=== PATIENT | male | born 1940 | race Caucasian/White ===

== ENCOUNTER 2017-05-07 18:38 | Emergency (ER) | payer OTHER ==
[~2017-05-07] VITALS: Ht 177.8 cm; Wt 77.4 kg
[~2017-05-07 18:38] MED LIST: PRAVASTATIN SOD10 MG PO; PRAVASTATIN SOD40 MG PO; PROZAC10 MG PO; PROZAC20 MG PO; RANITIDINE HCL150 M1 PO; ST. JOSEPH ASPI81 MG PO; TYLENOL ARTHRI650 MG PO
[2017-05-07 20:50] VITALS: BP 176/79
== END 2017-05-07 20:51 ==
LOC: EME 18:38
DX: F32.9 Major depressive disorder, single episode, unspecified (principal); Z63.0 Problems in relationship with spouse or partner; J45.909 Unspecified asthma, uncomplicated; E78.5 Hyperlipidemia, unspecified; K21.9 Gastro-esophageal reflux disease without esophagitis
CPT/HCPCS: 80048; 85025; 90837; 99281; 99283; G0480

== ENCOUNTER 2017-10-21 12:42 | Emergency (ER) | payer OTHER ==
[~2017-10-21] VITALS: Ht 177.8 cm; Wt 89.3 kg
[2017-10-21 13:59] LABS: HEMATOCRIT 41.4 % (38.0-50.0); MCH 31.2 PG (29.0-34.0); MCHC 33.6 G/DL (30.0-36.0); MCV 92.8 FL (86-99); MEAN PLAT.VOLUME 8.6 uM^3 (9.0-12.4); PLATELET COUNT 297 K/uL (156-360); RBC DIS.WIDTH-CV 12.2 % (11.8-14.6); RBC DIS.WIDTH-SD 41.7 % (39-53); RED BLOOD COUNT 4.46 M/uL (4.00-5.50)
[2017-10-21 14:11] LABS: CHLORIDE 104 mEq/L (99-109); SODIUM 138 mEq/L (136-147)
[2017-10-21 14:14] LABS: GLUCOSE 101 mg/dL (70-99)
[2017-10-21 14:15] LABS: ANION GAP 9 MEQ/L (2-14)
[2017-10-21 14:16] LABS: TOTAL BILIRUBIN 0.5 mg/dL (0.0-1.0)
[2017-10-21 14:17] LABS: ALKALINE PHOSPHATASE 85 IU/L (3-129); SERUM ETHYL ALCOHOL < 10 mg/dL
[2017-10-21 14:18] LABS: GFR ESTIMATE (CALCULATED) > 59 mL/min/
[2017-10-21 14:19] LABS: UREA NITROGEN (BUN) 15 mg/dL (9-23)
[2017-10-21 14:37] LABS: ADD MIUA? YES; BILIRUBIN NEGATIVE; BLOOD NEGATIVE; COLOR AMBER ((YELLOW)); GLUCOSE (STRIP) NEGATIVE; KETONES 5; LEUKOCYTES NEGATIVE; NITRITE NEGATIVE; PROTEIN (STRIP) 100; SPECIFIC GRAVITY 1.034 (1.000-1.030)
[2017-10-21 14:50] LABS: BACTERIA RARE /HPF; EPITHELIAL CELLS RARE /HPF; HYALINE CASTS 0-5 /LPF; MUCUS 3+ /LPF; RED BLOOD CELLS 0-5 /HPF (0-5); WHITE BLOOD CELLS 0-5 /HPF (0-5)
[2017-10-21 14:51] LABS: ADD MEDTOX COMMENT Y; AMPHETAMINE NEGATIVE (500 ng/mL); BARBITURATES NEGATIVE (200 ng/mL); BENZODIAZEPINES PRESUMPTIVE POSITIVE (150 ng/mL); COCAINE NEGATIVE (150 ng/mL); INTERNAL CONTROLS VALID? YES; METHADONE NEGATIVE (200 ng/mL); METHAMPHETAMINE NEGATIVE (500 ng/mL); OPIATES (MORPHINE) NEGATIVE (100 ng/mL); OXYCODONE NEGATIVE (100 ng/mL); PHENCYCLIDINE NEGATIVE (25 ng/mL); PROPOXYPHENE NEGATIVE (300 ng/mL); THC CANNABINOIDS NEGATIVE (50 ng/mL); TRICYCLIC ANTIDEPRESSANTS NEGATIVE (300 ng/mL)
[2017-10-21] MEDS ORDERED: TRAZODONE HCL50 MG PO (14:58)
[2017-10-21 15:10] VITALS: BP 116/77
[2017-10-21 15:29] LABS: BENZODIAZEPINES QUANT VALUE 0 NG/ML; BENZODIAZEPINES, URINE SCREEN Negative (200 ng/mL)
== END 2017-10-21 15:12 | disposition home or self-care (01) ==
LOC: EME 12:42
PROVIDERS: Emergency Medicine
DX: G47.00 Insomnia, unspecified (principal); F43.25 Adjustment disorder with mixed disturbance of emotions and conduct; F32.9 Major depressive disorder, single episode, unspecified; J45.909 Unspecified asthma, uncomplicated; E78.5 Hyperlipidemia, unspecified; K21.9 Gastro-esophageal reflux disease without esophagitis
CPT/HCPCS: 80053; 81003; 84999; 85027; 90839; 99281; 99284; G0480

== ENCOUNTER 2018-03-20 11:41 | Inpatient (IN) | payer OTHER ==
[~2018-03-20] VITALS: Ht 177.8 cm; Wt 88.0 kg
[~2018-03-20 11:41] MED LIST changes: +TRAZODONE HCL50 MG PO; -TYLENOL ARTHRI650 MG PO; +TYLENOL EXTRA500 MG PO
[2018-05-11] MEDS ORDERED: ULTRAM50 MG PO (11:13)
[2018-05-11] MEDS ORDERED: KLONOPIN0.5 M1 PO (11:14)
[2018-05-11] MEDS ORDERED: WELLBUTRIN XL150 MG PO (11:15)
[2018-05-16 10:00] VITALS: BP 155/72
[2018-05-16 14:09] LABS: HEMATOCRIT 34.1 % (38.0-50.0); HEMOGLOBIN 11.1 G/DL (12.5-16.6); MCH 31.2 PG (29.0-34.0); MCHC 32.6 G/DL (30.0-36.0); MCV 95.8 FL (86-99); PLATELET COUNT 255 K/uL (156-360); RBC DIS.WIDTH-CV 12.1 % (11.8-14.6); RBC DIS.WIDTH-SD 42.5 % (39-53); RED BLOOD COUNT 3.56 M/uL (4.00-5.50); WHITE BLOOD COUNT 6.9 K/uL (4.1-10.2)
[2018-05-16 15:25] VITALS: BP 170/78
[2018-05-16 19:16] VITALS: BP 126/75
[2018-05-16 23:32] VITALS: BP 121/65
[2018-05-17 03:45] VITALS: BP 118/63
[2018-05-17 06:53] LABS: CHLORIDE 102 MEQ/L (99-109); GFR ESTIMATE (CALCULATED) > 59 mL/min/ (58.99-99999); GLUCOSE 118 mg/dL (70-99); POTASSIUM 4.4 MEQ/L (3.7-5.4); SODIUM 136 MEQ/L (136-147); UREA NITROGEN (BUN) 18 mg/dL (9-23)
[2018-05-17 08:00] VITALS: BP 115/70
[2018-05-17 11:48] VITALS: BP 115/56
[2018-05-17 13:48] LABS: HEMATOCRIT 33.2 % (38.0-50.0); HEMOGLOBIN 11.1 G/DL (12.5-16.6); MCV 94.3 FL (86-99)
[2018-05-17 16:00] VITALS: BP 116/63
[2018-05-17 21:57] VITALS: BP 156/74
[2018-05-18 08:57] VITALS: BP 147/73
[2018-05-18 15:48] VITALS: BP 100/66
[2018-05-19 00:13] VITALS: BP 140/72
[2018-05-19 07:58] VITALS: BP 126/75
[2018-05-19] MEDS ORDERED: LOVENOX40 MG/0.4 SC (09:05)
[2018-05-19] MEDS ORDERED: ENDOCET 5-3251 EACH PO (09:05)
[2018-05-19] MEDS ORDERED: SENNA PLUS TAB1 EACH PO (09:05)
== END 2018-05-19 13:25 | DRG 470 ==
LOC: 2SOUTH 11:41 → ENRESERV 05-15 22:03 → 3EAST 05-16 08:13 → 2SOUTH 05-16 08:13 → ENRESERV 05-16 14:04 → 3EAST 05-16 14:58
PROVIDERS: Orthopaedic Surgery
PROC: 0SRB02A Replacement of Left Hip Joint with Metal on Polyethylene Synthetic Substitute, Uncemented, Open Approach (ICD-10-PCS; principal; 2018-05-16)
DX: M16.12 Unilateral primary osteoarthritis, left hip (principal); Z96.641 Presence of right artificial hip joint; E66.9 Obesity, unspecified; Z68.30 Body mass index [BMI] 30.0-30.9, adult; E78.00 Pure hypercholesterolemia, unspecified; J45.909 Unspecified asthma, uncomplicated; F41.8 Other specified anxiety disorders; R73.03 Prediabetes; M47.816 Spondylosis without myelopathy or radiculopathy, lumbar region; E78.1 Pure hyperglyceridemia
CPT/HCPCS: 71045; 73501; 80048; 82948; 85014; 85018; 85027; 97530 GP; J0131; J0690; J1650; J2250; J2405; J2710; J7050; J7643; S0020